=== PATIENT | female | born 1955 | race Caucasian/White ===

== ENCOUNTER → 2018-10-26 16:54 | Outpatient (CLI) | payer OTHER, SELFPAY ==
--- NOTE | 2018-10-26 16:58 | DI.RAD.S_ITS ---
PROCEDURE: XR ANKLE RT MIN 3V INDICATIONS: Previous fracture, ortho requested f/u xray TECHNIQUE: 3 views of the ankle were acquired. COMPARISON: None. FINDINGS: Bones: Minimally displaced oblique sagittal fracture through the distal fibula at the level of the syndesmosis. There may be a trace amount of bridging callus along the fracture plane superiorly. A no obvious mortise widening. No other fractures identified.. Ankle mortise is normally aligned. No suspicious bony lesions. Soft tissues: No tibiotalar joint effusion. Achilles tendon appears normal. IMPRESSION: Probably subacute right distal fibular fracture at the level of the syndesmosis without definite mortise widening. Dictated by: Mónica Aguilera M.D. on 10/26/2018 at 16:28 Approved by: Mónica Aguilera M.D. on 10/26/2018 at 16:30
== END ==
PROVIDERS: Visit Provider Physician Assistant
DX: S82.431A Displaced oblique fracture of shaft of right fibula, initial encounter for closed fracture (principal)
CPT/HCPCS: 73610